=== PATIENT | female | born 1960 | race Caucasian/White ===

== ENCOUNTER 2017-05-05 08:19 | Outpatient (CLI) | payer SELFPAY ==
[2017-05-05] VITALS (16 sets, daily range): BP systolic 122–161; BP diastolic 75–98; PULSE 66–95
[~2017-05-05] VITALS: Ht 162.6 cm; Wt 48.7 kg
[~2017-05-05 08:19] MED LIST: ASPIRIN E.C. 8181 MG PO; FOLIC ACID 11 MG/TA1 PO; LIPITOR 10MG10 MG PO; LORTAB 5/500 501 TAB PO; PRILOSEC 20MG20 MG PO; THERAGRAN TAB1 UDTAB PO; TYLENOL 325MG325 MG PO; ZOLOFT 100MG100 MG PO
[2017-05-05] MEDS ORDERED: ZOLOFT 50MG50 MG PO (08:49)
== END 2017-05-05 13:48 | disposition home or self-care (01) ==
LOC: COL.RAD 08:19
DX: R91.8 Other nonspecific abnormal finding of lung field (principal); R42 Dizziness and giddiness; R63.4 Abnormal weight loss
CPT/HCPCS: J3010